=== PATIENT | female | born 1985 ===

== ENCOUNTER 2016-11-22 21:36 | Inpatient (IN) | payer BC ==
[2016-11-22] MEDS ORDERED: Methylergonovine 0.2 MG/1 ML Amp IM PRN (22:17)
[2016-11-22] MEDS ORDERED: Lidocaine 1% 50 ML MDV INJECT PRN (22:17)
[2016-11-22] MEDS ORDERED: Nalbuphine 10 MG/1 ML Vial IVPUSH PRN (22:17)
[2016-11-22] MEDS ORDERED: Butorphanol 1 MG/ML SDV IVPUSH PRN (22:17)
[2016-11-22] MEDS ORDERED: Misoprostol 200 MCG Tab PO PRN (22:17)
[2016-11-22] MEDS ORDERED: Sodium Chloride 0.9% 2.5 ML Syringe FLUSH PRN (22:17)
[2016-11-22] MEDS ORDERED: Carboprost Tromethamine 250 MCG/1 ML Amp IM PRN (22:17)
[2016-11-22] MEDS ORDERED: Water For Irrigation,Sterile 1,000 ML Container IRR PRN (22:17)
[2016-11-22] MEDS ORDERED: Sodium Chloride 0.9% 10 ML Syringe FLUSH PRN (22:17)
[2016-11-22] MEDS ORDERED: Oxytocin/Lactated Ringers 30 UNIT/500 ML BAG IV SCH (22:30)
[2016-11-22] MEDS ORDERED: Ampicillin 2 GM in Sodium Chloride 0.9% 100 ML IV ONE (22:30)
[2016-11-22] MEDS: Lactated Ringers 1,000 ML IV SCH (22:53)
[2016-11-23] MEDS: Lactated Ringers 1,000 ML IV SCH ×3 (01:10→07:07)
[2016-11-23] MEDS ORDERED: fentaNYL 100 MCG/2 ML SDV ONE (01:10)
[2016-11-23] MEDS ORDERED: Ropivacaine 0.2% 2 MG/ML 20 ML SDV ONE (01:10)
[2016-11-23] MEDS ORDERED: Ropivacaine HCl/PF 100 ML ONE (01:10)
--- NOTE | 2016-11-23 01:37 | PCM.PREANE ---
Preanesthetic Assessment - Anesthesia/Transfusion/Family Hx Anesthesia History: Prior Anesthesia Without Reaction (epidural 2 years ago- no hx of GA) Family History of Anesthesia Reaction: No - Review of Systems Other: Reports: None - Physical Assessment Height: 4 ft 11 in Weight: 74.389 kg ASA Class: 2 Mental Status: Alert & Oriented x3 Airway Class: Mallampati = 2 Dentition: Reports: Normal Dentition Thyro-Mental Finger Breadths: 3 Mouth Opening Finger Breadths: 3 ROM/Head Extension: Full - Lab Values: Laboratory Last Values WBC 9.24 K/uL (4.0-11.0) 11/22/16 22:36 RBC 4.77 M/uL (4.30-5.90) 11/22/16 22:36 Hgb 14.2 g/dL (12.0-16.0) 11/22/16 22:36 Hct 41.7 % (36.0-46.0) 11/22/16 22:36 MCV 87.4 fL (80.0-98.0) 11/22/16 22:36 MCH 29.8 pg (27.0-32.0) 11/22/16 22:36 MCHC 34.1 g/dL (31.0-37.0) 11/22/16 22:36 RDW Std Deviation 46.7 fl (28.0-62.0) 11/22/16 22:36 RDW Coeff of Beryl 15 % (11.0-15.0) 11/22/16 22:36 Plt Count 161 K/uL (150-400) 11/22/16 22:36 MPV 11.00 fL (7.40-12.00) 11/22/16 22:36 Nucleated RBC % 0.0 /100WBC 11/22/16 22:36 Nucleated RBCs # 0 K/uL 11/22/16 22:36 Blood Type O POSITIVE 11/22/16 22:36 Antibody Screen NEGATIVE 11/22/16 22:36 - Allergies Allergies/Adverse Reactions: Allergies Allergy/AdvReac Type Severity Reaction Status Date / Time No Known Allergies Allergy Verified 10/20/14 04:54 - Blood Blood Available: Yes Product(s) Available: PRBC - Acknowledgements Anesthesia Type Planned: Epidural Pt an Appropriate Candidate for the Planned Anesthesia: Yes Alternatives and Risks of Anesthesia Discussed w Pt/Guardian: Yes Pt/Guardian Understands and Agrees with Anesthesia Plan: Yes PreAnesthesia Questionnaire Gastrointestinal History: Reports: GERD 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: - SUBSTANCE USE Smoking Status *Q: Never Smoker Second Hand Smoke Exposure: No Days Per Week of Alcohol Use: 0 Recreational Drug Use History: Yes - HOME MEDS Home Medications: Home Meds Acetaminophen [Tylenol Extra Strength] 1,000 mg PO Q4H PRN #30 tab 10/22/14 [Rx] Benzocaine/Menthol [Dermoplast Pain Relief 20%-0.5% [place]] 78 gm TOP ASDIRECTED PRN #1 canister 10/22/14 [Rx] Docusate Sodium [Colace] 100 mg PO BID PRN #30 cap 10/22/14 [Rx] Ibuprofen [Motrin] 400 mg PO Q4H PRN #30 tablet 10/22/14 [Rx] Lanolin [Lansinoh HPA] 40 gm TOP ASDIRECTED PRN #1 crm 10/22/14 [Rx] - CURRENT (IN HOUSE) MEDS Current Meds: Current Medications Butorphanol Tartrate (Stadol) 1 mg IVPUSH Q1H PRN PRN Reason: Pain Stop: 11/23/16 22:18 Last Admin: 11/23/16 00:59 Dose: 1 mg Carboprost Tromethamine (Hemabate Ds) 250 mcg IM ASDIRECTED PRN PRN Reason: Post Hemorrhage Lactated Ringer's (Ringers, Lactated) 1,000 mls @ 150 mls/hr IV ASDIRECTED PAMELA Last Admin: 11/23/16 01:10 Dose: 150 mls/hr Oxytocin/Lactated Ringer's (Pitocin In Lr 30 Units/500 Ml) 30 unit in 500 mls @ 2 mls/hr IV TITRATE PAMELA; 2 MUNITS/MIN PRN Reason: Protocol Stop: 11/23/16 22:29 Ampicillin Sodium 1 gm/ Sodium (Chloride) 50 mls @ 100 mls/hr IV Q4H PAMELA Lidocaine HCl (Xylocaine 1%) 50 ml INJECT .ONCE PRN PRN Reason: Laceration repair Methylergonovine Maleate (Methergine) 0.2 mg IM ASDIRECTED PRN PRN Reason: Post Hemorrhage Misoprostol (Cytotec) 200 mcg PO .ONCE PRN PRN Reason: Post Hemorrhage Sodium Chloride (Saline Flush) 10 ml FLUSH ASDIRECTED PRN PRN Reason: Keep Vein Open Sodium Chloride (Saline Flush) 2.5 ml FLUSH ASDIRECTED PRN PRN Reason: Keep Vein Open Sterile Water (Sterile Water For Irrigation) 1,000 ml IRR ASDIRECTED PRN PRN Reason: delivery Discontinued Medications Fentanyl (Sublimaze) Confirm Administered Dose 200 mcg .ROUTE .STK-MED ONE Stop: 11/23/16 01:11 Ampicillin Sodium 2 gm/ Sodium (Chloride) 100 mls @ 200 mls/hr IV ONETIME ONE Stop: 11/22/16 22:59 Last Admin: 11/22/16 22:53 Dose: 200 mls/hr Ropivacaine (Naropin 0.2%) Confirm Administered Dose 100 mls @ as directed .ROUTE .STK-MED ONE Stop: 11/23/16 01:11 Nalbuphine HCl (Nubain) 10 mg IVPUSH Q1H PRN PRN Reason: Pain (severe 7-10) Stop: 11/23/16 00:18 Ropivacaine (Naropin 0.2%) Confirm Administered Dose 20 ml .ROUTE .STK-MED ONE Stop: 11/23/16 01:11 Preanesthetic Assessment - ANESTHESIA/TRANSFUSION/FAMILY HX Anesthesia/Transfusion History: Prior Anesthesia (sedation for bone marrow donation) Family History of Anesthesia Reaction: No Intubation History: Unknown - PHYSICAL ASSESSMENT Height: 4 ft 11 in Weight: 74.389 kg - LAB Values: Laboratory Last Values WBC 9.24 K/uL (4.0-11.0) 11/22/16 22:36 RBC 4.77 M/uL (4.30-5.90) 11/22/16 22:36 Hgb 14.2 g/dL (12.0-16.0) 11/22/16 22:36 Hct 41.7 % (36.0-46.0) 11/22/16 22:36 MCV 87.4 fL (80.0-98.0) 11/22/16 22:36 MCH 29.8 pg (27.0-32.0) 11/22/16 22:36 MCHC 34.1 g/dL (31.0-37.0) 11/22/16 22:36 RDW Std Deviation 46.7 fl (28.0-62.0) 11/22/16 22:36 RDW Coeff of Beryl 15 % (11.0-15.0) 11/22/16 22:36 Plt Count 161 K/uL (150-400) 11/22/16 22:36 MPV 11.00 fL (7.40-12.00) 11/22/16 22:36 Nucleated RBC % 0.0 /100WBC 11/22/16 22:36 Nucleated RBCs # 0 K/uL 11/22/16 22:36 Blood Type O POSITIVE 11/22/16 22:36 Antibody Screen NEGATIVE 11/22/16 22:36 - ALLERGIES Allergies/Adverse Reactions: Allergies Allergy/AdvReac Type Severity Reaction Status Date / Time No Known Allergies Allergy Verified 10/20/14 04:54
[2016-11-23] MEDS: Ampicillin 1 GM AdvVial IV ONE ×2 (02:57→03:04)
[2016-11-23] MEDS ORDERED: Citric Acid/Sodium Citrate Solution 30 ML Cup PO ONE (05:52)
[2016-11-23] MEDS ORDERED: Ampicillin 1 GM AdvVial IV ONE (07:00)
[2016-11-23] MEDS ORDERED: Ampicillin 1 GM in Sodium Chloride 0.9% 50 ML IV SCH ×5 (07:15→11:00)
[2016-11-23] MEDS ORDERED: Calcium Carbonate 500 MG Tab.Chew PO ONE (07:23)
[2016-11-23] MEDS ORDERED: Calcium Carbonate 500 MG Tab.Chew ONE (07:24)
[2016-11-23] MEDS ORDERED: Acetaminophen 500 MG Tab PO ONE (07:56)
[2016-11-23] MEDS ORDERED: Terbutaline 1 MG/ML SDV ONE (08:42)
[2016-11-23] MEDS ORDERED: Terbutaline 1 MG/ML SDV SUBCUT ONE (08:46)
[2016-11-23] MEDS ORDERED: Bisacodyl 10 MG Supp RECTAL PRN (09:40)
[2016-11-23] MEDS ORDERED: Docusate Sodium 100 MG Cap PO PRN (09:40)
[2016-11-23] MEDS ORDERED: oxyCODONE 5 MG Tab PO PRN (09:40)
[2016-11-23] MEDS ORDERED: Ibuprofen 400 MG Tab PO PRN (09:40)
[2016-11-23] MEDS ORDERED: Lanolin 100% Cream 7 GM Tube TOP PRN (09:40)
[2016-11-23] MEDS ORDERED: Acetaminophen 500 MG Tab PO PRN ×2 (09:40)
--- NOTE | 2016-11-23 11:43 | OR ---
SURGEON: Shelbi Kumar MD DATE OF PROCEDURE: 11/23/2016 PREOPERATIVE DIAGNOSES: 1. Term at 39 weeks gestation. 2. Spontaneous labor. 3. GBS positive. 4. Maternal intrapartum fever. POSTOPERATIVE DIAGNOSES: 1. Term at 39 weeks gestation. 2. Spontaneous labor. 3. GBS positive. 4. Maternal intrapartum fever. 5. Delivered. PROCEDURE: Spontaneous vaginal delivery. ANESTHESIA: Epidural. ESTIMATED BLOOD LOSS: 150 mL. COMPLICATIONS: None. DISPOSITION: Mother and baby stable in Labor and Delivery room, [facility]. FINDINGS: Female , weight 2700 g, score 3, 6, and 8 at 1, 5, and 10 minutes respectively. Tight nuchal cord twice. Grossly normal placenta with three- vessel cord. Intact perineum. BRIEF HISTORY: The patient is a 30-year-old, G2, P1, who presented overnight at 38 weeks and 6 days gestation with complaints of irregular contractions throughout the day followed by leakage of blood tinged fluid at about 8 p.m. on 11/22/2016. She denied vaginal bleeding and reported active fetus. care was uncomplicated. GBS positive. On admission, she was confirmed to be grossly ruptured, reilly every 2 to 3 minutes and was found to be 1 cm dilated, 50% effaced, station -2. Ampicillin was commenced for GBS prophylaxis. She was re- examined 3 hours after and she was found to be 3 cm dilated, 80% effaced, station -1. Contractions were every 1 to 3 minutes and she requested and received epidural for pain management. The heart tracing remained mainly a category II tracing alternating with category I intermittently, and she progressed to 7 cm 4 hours later, and thereafter quickly progressed to 9 to 10 cm with just an anterior lip within 2 hours. The heart rate started having recurrent variable decelerations with occasional late decelerations. When I evaluated her, I felt that she felt warm, her temperature was taken, and it was 100.7. IV fluid bolu was commenced, and she was given a 1 gram of Tylenol and subsequently given 120mg of Gentamicin. With the maternal temperature, tachycardia was noted in the ranges of 170s to 180s and the variable decelerations continued to be recurrent with contractions every 1 to 2 minutes. FSE and IUPC were placed, amnioinfusion was commenced followed with SQ Terbutaline for the tachysystole. With these intrapartum resuscitation , the heart tracing improved for a about 30mins, but followed by deep variables down to 70 to 80 beats per minute with recovery back to the baseline of 170. I reexamined her, she was fully dilated, OP presentation at station +1. I performed a manual rotation which was successful and then she commenced pushing. She pushed for approximately 20 minutes bringing the head down to a +5 station and was set up for delivery in modified dorsal lithotomy position. The contractor general building on-call, Dr. Lr was called to be attendant at delivery. DESCRIPTION OF PROCEDURE: She had a spontaneous vaginal delivery of a live female infant in direct occipito anterior position, with restitution of the head, tight nuchal cord twice noted, these were eventually reduced. The anterior and the posterior shoulders and the rest of the baby were delivered without difficulty. The baby was stunned at delivery with poor respiratory effort. The cord was double clamped, cut and the was handed over to Dr. Lr, contractor general building on-call. With delivery of the infant, oxytocin, titration was commenced for active management of third stage of labor. Cord blood and gas samples were obtained. The placenta was delivered by controlled cord traction appeared to be complete and intact. Uterine massage was performed and the uterus was found to be well contracted below the umbilicus. Perineum was intact ion inspection. The patient tolerated the procedure well. Sponge, instrument, and needle counts were correct. The baby transitioned well and was left in the room with the mother, both of them bonding. ADUMVIV / MODL /[id number] [id number]
[2016-11-23] MEDS: Ibuprofen 800 MG Tab PO PRN ×2 (11:49→19:55)
[2016-11-23] MEDS: Witch Hazel Medicated Pads 40/Jar TOP PRN (12:08)
[2016-11-23] MEDS: Benzocaine/Menthol 20%-0.5% Spray 78 GM Cannister TOP PRN (12:08)
--- NOTE | 2016-11-23 17:42 | PCM48HPAN ---
Post Anesthesia Note - EVALUATION WITHIN 48HRS OF ANESTHETIC Vital Signs in Normal Range: Yes Patient Participated in Evaluation: Yes Respiratory Function Stable: Yes Airway Patent: Yes Cardiovascular Function Stable: Yes Hydration Status Stable: Yes Pain Control Satisfactory: Yes Nausea and Vomiting Control Satisfactory: Yes Mental Status Recovered: Yes
--- NOTE | 2016-11-24 08:58 | PCM.PNPP ---
- General Info Date of Service: 11/24/16 Functional Status: Reports: pain controlled, tolerating diet, ambulating, urinating - Review of Systems General: Denies: Fever, Weakness, Malaise, Chills HEENT: Denies: headaches Pulmonary: Denies: shortness of breath, pleuritic chest pain, cough, sputum Cardiovascular: Denies: Chest Pain, Palpitations, Dyspnea on Exertion Gastrointestinal: Denies: Abdominal pain Genitourinary: Denies: dysuria, frequency, incontinence Psychiatric: Denies: depression, mood lability, anxiety - General Info Date of Service: 11/24/16 - Patient Data Vital Signs - most recent: Last Vital Signs Temp 36.4 C 11/24/16 04:00 Pulse 82 11/24/16 04:00 Resp 16 11/24/16 04:00 BP 109/75 11/24/16 04:00 Pulse Ox 99 11/24/16 04:00 Weight - most recent: 164 lb Lab Results - last 24 hrs: Laboratory Results - last 24 hr 11/24/16 Range/Units 04:41 Hgb 11.7 L (12.0-16.0) g/dL Hct 35.1 L (36.0-46.0) % Med Orders - Current: Current Medications Acetaminophen (Tylenol Extra Strength) 500 mg PO Q4H PRN PRN Reason: Pain Acetaminophen (Tylenol Extra Strength) 1,000 mg PO Q4H PRN PRN Reason: Pain Benzocaine/Menthol (Dermoplast Pain Relief 20%-0.5% [place]) 78 gm TOP ASDIRECTED PRN PRN Reason: Perineal Comfort Measure Last Admin: 11/23/16 12:08 Dose: 78 gm Bisacodyl (Dulcolax) 10 mg RECTAL .ONCE PRN PRN Reason: Constipation Docusate Sodium (Colace) 100 mg PO BID PRN PRN Reason: Constipation Emollient Ointment (Lansinoh Hpa) 0 gm TOP ASDIRECTED PRN PRN Reason: Sore Nipples Ibuprofen (Motrin) 400 mg PO Q4H PRN PRN Reason: Pain Ibuprofen (Motrin) 800 mg PO Q6H PRN PRN Reason: Pain Last Admin: 11/23/16 19:55 Dose: 800 mg Oxycodone HCl (Oxycodone) 5 mg PO Q2H PRN PRN Reason: Pain Last Admin: 11/24/16 04:18 Dose: 5 mg Witch Carmina (Tucks) 1 pad TOP ASDIRECTED PRN PRN Reason: comfort care Last Admin: 11/23/16 12:08 Dose: 1 pad Discontinued Medications Acetaminophen (Tylenol Extra Strength) 1,000 mg PO ONETIME ONE Stop: 11/23/16 07:57 Last Admin: 11/23/16 08:00 Dose: 1,000 mg Ampicillin Sodium (Ampicillin) Confirm Administered Dose 1 gm IV .STK-MED ONE Stop: 11/23/16 02:51 Last Admin: 11/23/16 03:04 Dose: 1 gm Ampicillin Sodium (Ampicillin) Confirm Administered Dose 1 gm IV .STK-MED ONE Stop: 11/23/16 07:01 Last Admin: 11/23/16 07:08 Dose: 1 gm Butorphanol Tartrate (Stadol) 1 mg IVPUSH Q1H PRN PRN Reason: Pain Stop: 11/23/16 22:18 Last Admin: 11/23/16 00:59 Dose: 1 mg Calcium Carbonate/Glycine (Tums) 1,000 mg PO ONETIME ONE Stop: 11/23/16 07:24 Last Admin: 11/23/16 07:26 Dose: 1,000 mg Calcium Carbonate/Glycine (Tums) Confirm Administered Dose 1,000 mg .ROUTE .STK- MED ONE Stop: 11/23/16 07:25 Carboprost Tromethamine (Hemabate Ds) 250 mcg IM ASDIRECTED PRN PRN Reason: Post Hemorrhage Citric Acid/Sodium Citrate (Bicitra Solution) 30 ml PO ONETIME ONE Stop: 11/23/16 05:53 Last Admin: 11/23/16 05:56 Dose: 30 ml Fentanyl (Sublimaze) Confirm Administered Dose 200 mcg .ROUTE .STK-MED ONE Stop: 11/23/16 01:11 Ampicillin Sodium 2 gm/ Sodium (Chloride) 100 mls @ 200 mls/hr IV ONETIME ONE Stop: 11/22/16 22:59 Last Admin: 11/22/16 22:53 Dose: 200 mls/hr Lactated Ringer's (Ringers, Lactated) 1,000 mls @ 150 mls/hr IV ASDIRECTED PAMELA Last Admin: 11/23/16 07:07 Dose: 150 mls/hr Oxytocin/Lactated Ringer's (Pitocin In Lr 30 Units/500 Ml) 30 unit in 500 mls @ 2 mls/hr IV TITRATE PAMELA; 2 MUNITS/MIN PRN Reason: Protocol Stop: 11/23/16 22:29 Last Admin: 11/23/16 09:22 Dose: 333 mls/hr Ampicillin Sodium 1 gm/ Sodium (Chloride) 50 mls @ 100 mls/hr IV Q4H PAMELA Ropivacaine (Naropin 0.2%) Confirm Administered Dose 100 mls @ as directed .ROUTE .[facility] ONE Stop: 11/23/16 01:11 Ampicillin Sodium 1 gm/ Sodium (Chloride) 50 mls @ 100 mls/hr IV Q4H PAMELA Ampicillin Sodium 1 gm/ Sodium (Chloride) 50 mls @ 100 mls/hr IV Q4H PAMELA Ampicillin Sodium 1 gm/ Sodium (Chloride) 50 mls @ 100 mls/hr IV Q4H PAMELA Gentamicin Sulfate 120 mg/ (Sodium Chloride) 53 mls @ 100 mls/hr IV ONETIME ONE Stop: 11/23/16 08:48 Last Admin: 11/23/16 08:48 Dose: 100 mls/hr Lidocaine HCl (Xylocaine 1%) 50 ml INJECT .ONCE PRN PRN Reason: Laceration repair Methylergonovine Maleate (Methergine) 0.2 mg IM ASDIRECTED PRN PRN Reason: Post Hemorrhage Misoprostol (Cytotec) 200 mcg PO .ONCE PRN PRN Reason: Post Hemorrhage Nalbuphine HCl (Nubain) 10 mg IVPUSH Q1H PRN PRN Reason: Pain (severe 7-10) Stop: 11/23/16 00:18 Ropivacaine (Naropin 0.2%) Confirm Administered Dose 20 ml .[address]OUTE .[facility] ONE Stop: 11/23/16 01:11 Sodium Chloride (Saline Flush) 10 ml FLUSH ASDIRECTED PRN PRN Reason: Keep Vein Open Sodium Chloride (Saline Flush) 2.5 ml FLUSH ASDIRECTED PRN PRN Reason: Keep Vein Open Sterile Water (Sterile Water For Irrigation) 1,000 ml IRR ASDIRECTED PRN PRN Reason: delivery Last Admin: 11/23/16 09:18 Dose: 1,000 ml Terbutaline Sulfate (Brethine) Confirm Administered Dose 1 mg .ROUTE .STK-MED ONE Stop: 11/23/16 08:43 Terbutaline Sulfate (Brethine) 0.25 mg SUBCUT ONETIME ONE Stop: 11/23/16 08:47 Last Admin: 11/23/16 08:45 Dose: 0.25 mg - Interaction Disposition, : in Room with Family Infant Feeding: Breastfed ; Nursed Well, Continues to Breastfeed Support Person: - Recovery Exam Fundal Tone: Firm Fundal Level: 1 Fingerbreadths Below Umbilicus Fundal Placement: Midline Lochia Amount: Scant Lochia Color: Rubra/Red Perineum Description: Intact, Minimal Bruising/Swelling Episiotomy/Laceration: None Bladder Status: Voiding Urinary Elimination: Voided - Exam General: alert, oriented Neck: supple Lungs: Clear to auscultation, Normal respiratory effort Cardiovascular: Regular Rate, Regular Rhythm Abdomen: bowel sounds present, soft, no tenderness, no distension Extremities: no edema Skin: warm Psy/Mental Status: alert, normal affect, normal mood - Problem List & Annotations (1) Vaginal delivery SNOMED Code(s): 703087091 Code(s): O80 - ENCOUNTER FOR FULL-TERM UNCOMPLICATED DELIVERY Status: Acute Current Visit: No - Problem List Review Problem List Initiated/Reviewed/Updated: Yes - My Orders Last 24 Hours: My Active Orders 11/23/16 09:40 Patient Status [ADT] Routine May Shower [RC] ASDIRECTED Up ad Lala [RC] ASDIRECTED Vital Signs [RC] PER UNIT ROUTINE Acetaminophen [Tylenol Extra Strength] 1,000 mg PO Q4H PRN Acetaminophen [Tylenol Extra Strength] 500 mg PO Q4H PRN Benzocaine/Menthol [Dermoplast Pain Relief 20%-0.5% [place]] 78 gm TOP ASDIRECTED PRN Bisacodyl [Dulcolax] 10 mg RECTAL .ONCE PRN Docusate Sodium [Colace] 100 mg PO BID PRN Ibuprofen [Motrin] 400 mg PO Q4H PRN Ibuprofen [Motrin] 800 mg PO Q6H PRN Lanolin [Lansinoh HPA] See Dose Instructions TOP ASDIRECTED PRN Witch Carmina [Tucks] 1 pad TOP ASDIRECTED PRN oxyCODONE 5 mg PO Q2H PRN Assess Lochia [WOMSER] Per Unit Routine Assess Uterine Involution [WOMSER] Per Unit Routine Breast Pump [WOMSER] Per Unit Routine Peripheral IV Discontinue [OM.PC] Routine Resuscitation Status Routine 11/23/16 09:41 Perineal Care [OM.PC] Per Unit Routine 11/23/16 Lunch Regular Diet [DIET] - Assessment Assessment:: PPD31 s/p , stable and afebrile Clinically stable for discharge today - Plan Plan:: Patient may be discharged today if her baby is discharged Discharge instructions reviewed Nothing in the vagina for 6 weeks Bleeding and infection precautions reviewed Continue PNV Follow up in 6 weeks
[2016-11-24] MEDS: Ibuprofen 800 MG Tab PO PRN (11:32)
[2016-11-24] MEDS: Benzocaine/Menthol 20%-0.5% Spray 78 GM Cannister TOP PRN (11:40)
[2016-11-24] MEDS: Witch Hazel Medicated Pads 40/Jar TOP PRN (11:40)
[2016-11-24] MEDS: Ampicillin 1 GM in Sodium Chloride 0.9% 50 ML IV SCH (12:21)
[2016-11-24 19:50] VITALS: BP 147/84
== END 2016-11-24 14:20 | disposition home or self-care (01) | DRG 560 ==
LOC: MW.OBCHECK 21:36 → MW.OB 21:40 → MW.OBCHECK 22:17 → OBSVTOIN 11-23 09:21
PROVIDERS: ADMIT Obstetrics & Gynecology; ATTEND Obstetrics & Gynecology
PROC: 10E0XZZ Delivery of Products of Conception, External Approach (ICD-10-PCS; principal; 2016-11-23)
PROC: 10D07Z7 Extraction of Products of Conception, Internal Version, Via Natural or Artificial Opening (ICD-10-PCS; 2016-11-23)
PROC: 10H07YZ Insertion of Other Device into Products of Conception, Via Natural or Artificial Opening (ICD-10-PCS; 2016-11-23)
PROC: 4A1H7CZ Monitoring of Products of Conception, Cardiac Rate, Via Natural or Artificial Opening (ICD-10-PCS; 2016-11-23)
DX: O42.02 Full-term premature rupture of membranes, onset of labor within 24 hours of rupture (principal); O75.2 Pyrexia during labor, not elsewhere classified; O69.1XX0 Labor and delivery complicated by cord around neck, with compression, not applicable or unspecified; Z3A.39 39 weeks gestation of pregnancy; Z37.0 Single live birth; Z22.330 Carrier of Group B streptococcus
CPT/HCPCS: 01967; 36415; 51703; 59025; 85014; 85018; 85027; 86850; 86900; 86901; 88307; A9270-GY; J0290; J0595; J1580; J2795; J3010; J3105; J7030; J7050; J7120